=== PATIENT | female | born 1975 | race American Indian/Alaskan Native ===

== ENCOUNTER 2017-11-26 12:58 | Inpatient (IN) | payer SELFPAY ==
[2017-11-26] MEDS ORDERED: NITRO-BID 2% TP ONE (15:45)
[2017-11-26] MEDS ORDERED: ASPIRIN PO ONE (15:45)
--- NOTE | 2017-11-26 15:45 | Emergency Department Report ---
Blank Doc - Documentation Documentation: Patient is a 42-year-old female who is presenting with chest pain. Patient states she woke up with stabbing chest pain is similar chest hypoxia 5:30 this morning there is some associated shortness of breath. Patient states pain as being constant with no radiation. Patient's history high blood pressure was not taking blood pressure medicines at least since January 2017 secondary to not having a physician. Patient denies any nausea vomiting cough fevers congestion at this time.
[2017-11-26] MEDS ORDERED: CATAPRES PO ONE (15:46)
--- NOTE | 2017-11-26 16:02 | Emergency Department Report ---
ED Chest Pain HPI - General Chief Complaint: Chest Pain Stated Complaint: CHEST PAIN Time Seen by Provider: 11/26/17 15:37 Source: patient, family Mode of arrival: Ambulatory Limitations: No Limitations - History of Present Illness Initial Comments: Patient here reports that she has chest pain Patient here reports that she is having chest pain started at 5:30 AM to the left side of her chest with nausea and vomiting. She reports radiation of pain to her left arm. Pain feels like someone is pressing on her chest. Denies any recent travel, denies any control pill. Patient says she is also having some shortness of breath. Her blood pressure is 162/114, and she denied headache, dizziness or blurred vision. She denies any swelling to her extremities. Patient does have a history of high blood pressure and an enlarged heart from chronic hypertension. Surgical history of 2. She denies a previous history of chest pain and reports that her pain is 10 out of 10 to her left chest radiating down into her left arm. Nothing makes it better, nothing makes it worse. She did not take any medication prior to coming to the emergency room and patient reports that she recently moved to [place] and she was on blood pressure medication to include lisinopril, which she has not taken for a while. She does not have a primary care physician. Denies any history of blood clots personally or in her family MD Complaint: chest pain -: This morning Onset: during rest Pain Location: left chest Pain Radiation: LUE Severity: severe Severity scale (0 -10): 10 Quality: tightness, pressure Consistency: constant Improves With: nothing Worsens With: nothing Context: other (unknown) re: nausea. denies: vomting, diaphoresis, dyspnea, sense of impending doom Other Symptoms: denies: cough, fever, syncope, leg swelling, palpitations, burping, other Treatments Prior to Arrival: none Aspirin use within the Past 7 Days: (0) No - Related Data On Oral Contraceptives: No Home Medications Medication Instructions Recorded Confirmed Last Taken No Known Home Medications [No 11/26/17 11/26/17 Unknown Reported Home Medications] Allergies Allergy/AdvReac Type Severity Reaction Status Date / Time No Known Allergies Allergy Verified 11/26/17 21:59 Heart Score - HEART Score History: Highly suspicious EKG: Normal Age: < 45 Risk factors: > 3 risk factors or hx of atherosclerotic disease (patient is a smoker) Troponin: < normal limit HEART Score: 4 - Critical Actions Critical Actions: 4-6 pts:12-16.6% risk of adverse cardiac event. Should be admitted ED Review of Systems ROS: Stated complaint: CHEST PAIN Other details as noted in HPI Comment: All other systems reviewed and negative Constitutional: no symptoms reported Eyes: denies: eye pain, eye discharge, vision change ENT: denies: ear pain, throat pain, congestion Respiratory: shortness of breath, SOB with exertion, SOB at rest. denies: cough , wheezing, other Cardiovascular: chest pain. denies: palpitations, dyspnea on exertion, edema, syncope, paroxysmal nocturnal dyspnea Gastrointestinal: nausea. denies: abdominal pain, vomiting, diarrhea, constipation, hematemesis, melena, hematochezia Genitourinary: denies: urgency, dysuria, discharge Musculoskeletal: denies: back pain, joint swelling, arthralgia, myalgia Skin: denies: rash, lesions Neurological: denies: headache, weakness, numbness, paresthesias, abnormal gait , vertigo Psychiatric: anxiety ED Past Medical Hx - Past Medical History Previous Medical History?: Yes Hx Hypertension: Yes (uncontrolled and noncompliant with medication) Additional medical history: enlarged heart - Surgical History Past Surgical History?: Yes Additional Surgical History: c sect x 2 - Family History Family history: diabetes, hypertension - Social History Smoking Status: Current Every Day Smoker Substance Use Type: Alcohol Other Social History: She lives with her family - Medications Home Medications: Home Medications Medication Instructions Recorded Confirmed Last Taken Type No Known Home Medications [No 11/26/17 11/26/17 Unknown History Reported Home Medications] ED Physical Exam - General Limitations: No Limitations General appearance: alert, in no apparent distress - Head Head exam: Present: atraumatic, normocephalic, normal inspection, other (normal exam) - Eye Eye exam: Present: normal appearance, PERRL, EOMI Pupils: Present: normal accommodation - ENT ENT exam: Present: normal exam, normal orophraynx, mucous membranes moist - Neck Neck exam: Present: normal inspection, full ROM, other (no C-spine tenderness). Absent: tenderness, lymphadenopathy - Respiratory Respiratory exam: Present: normal lung sounds bilaterally. Absent: respiratory distress, wheezes, rales, rhonchi, stridor, chest wall tenderness, accessory muscle use, decreased breath sounds, prolonged expiratory - Cardiovascular Cardiovascular Exam: Present: regular rate, normal rhythm, normal heart sounds. Absent: systolic murmur, diastolic murmur - GI/Abdominal GI/Abdominal exam: Present: soft, normal bowel sounds. Absent: distended, tenderness, guarding, rebound, rigid, mass, bruit, pulsatile mass, hernia - Extremities Exam Extremities exam: Present: normal inspection, full ROM, normal capillary refill , other (no clubbing, cyanosis or edema. +2 pulses to all extremities and no neurovascular compromise). Absent: tenderness, pedal edema, joint swelling, calf tenderness - Back Exam Back exam: Present: normal inspection, full ROM, other (ambulates without any difficulties). Absent: tenderness, CVA tenderness (R), CVA tenderness (L), muscle spasm, paraspinal tenderness, vertebral tenderness, rash noted - Neurological Exam Neurological exam: Present: alert, oriented X3, normal gait, reflexes normal, other ( No focal neurological deficit). Absent: motor sensory deficit - Psychiatric Psychiatric exam: Present: anxious - Skin Skin exam: Present: warm, dry, intact, normal color. Absent: rash ED Course Vital Signs 11/26/17 11/26/17 11/26/17 13:28 16:32 16:45 Temperature 99 F Pulse Rate 80 76 Respiratory 20 14 16 Rate Blood Pressure 162/114 168/106 Blood Pressure [Left] O2 Sat by Pulse 100 97 Oximetry 11/26/17 11/26/17 11/26/17 17:00 17:15 17:30 Temperature Pulse Rate 77 81 76 Respiratory 12 16 15 Rate Blood Pressure 174/111 168/103 173/110 Blood Pressure [Left] O2 Sat by Pulse 100 100 Oximetry 11/26/17 11/26/17 11/26/17 17:45 18:00 18:09 Temperature Pulse Rate 74 77 74 Respiratory 13 15 Rate Blood Pressure 192/114 192/114 192/119 Blood Pressure [Left] O2 Sat by Pulse 100 100 Oximetry 11/26/17 11/26/17 11/26/17 20:08 20:15 20:16 Temperature Pulse Rate 77 Respiratory 18 Rate Blood Pressure 192/114 130/75 Blood Pressure 130/75 [Left] O2 Sat by Pulse 100 100 100 Oximetry 05/10/18 05/10/18 05/10/18 20:30 20:46 21:00 Temperature Pulse Rate Respiratory Rate Blood Pressure 130/75 130/75 130/75 Blood Pressure [Left] O2 Sat by Pulse 99 99 99 Oximetry 11/26/17 11/26/17 11/26/17 21:30 21:38 21:46 Temperature Pulse Rate 82 Respiratory 14 13 Rate Blood Pressure Blood Pressure [Left] O2 Sat by Pulse 99 97 100 Oximetry 11/26/17 11/26/17 11/26/17 22:00 22:16 22:30 Temperature Pulse Rate 72 71 72 Respiratory 16 21 17 Rate Blood Pressure 123/82 123/82 110/73 Blood Pressure [Left] O2 Sat by Pulse 98 99 97 Oximetry 11/26/17 11/26/17 11/26/17 22:46 23:00 23:04 Temperature Pulse Rate 66 65 74 Respiratory 18 17 17 Rate Blood Pressure 110/73 111/77 111/77 Blood Pressure [Left] O2 Sat by Pulse 99 100 100 Oximetry 11/26/17 11/26/17 23:10 23:37 Temperature 98.3 F Pulse Rate 63 68 Respiratory 20 20 Rate Blood Pressure 111/77 111/73 Blood Pressure 111/73 [Left] O2 Sat by Pulse 99 98 Oximetry - Reevaluation(s) Reevaluation #1: 11/26/17 17:46 Patient with chest pain and she received Nitropaste after screening by Dr. Peter Rocha. She received lisinopril 20 mg by mouth for elevated blood pressure, clonidine 0.1 mg by mouth and aspirin 325 mg by mouth. She is stable at present. Patient with elevated d-dimer and to have CTA of the chest Reevaluation #2: 11/26/17 19:48 Patient had CTA of the chest done and awaiting report. Chest x-ray with negative findings. CBC stable, troponin is stable and her EKG is stable patient with elevated blood pressure. She was given Ativan 1 mg by mouth for anxiety prior to CTA. Reevaluation #3: 11/26/17 20:16 Blood pressure is better. Patient is stable. Patient says that Ativan helped her anxiety. CT is still pending. I spoke with patient regarding decision to admit whether or not she has positive CTA of the chest. Her cardiac risk or is elevated and it suggested that she be admitted for observation and probable will have stress test in the morning. Patient is old. Bit emotional, but I was able to convince her that she is to stay. I spoke with the charge nurse, who will try to get a bed on the main side for patient. She did say that Nitropaste did resolve her chest pain. KEEGAN score - Keegan Score Age > 65: (0) No Aspirin use within the Past 7 Days: (0) No 3 or more CAD Risk Factors: (1) Yes (patient with BMI of 47, positive smoker, uncontrolled hypertension and enlarged heart from chronic hypertension.) 2 or more Angina events in past 24 hrs: (0) No Known CAD with more than 50% Stenosis: (0) No Elevated Cardiac Markers: (0) No ST Deviation Greater than 0.5mm: (0) No KEEGAN Score: 1 ED Medical Decision Making - Lab Data Result diagrams: 11/27/17 05:51 11/26/17 16:15 Lab Results 11/26/17 11/26/17 11/26/17 Range/Units 16:15 16:15 16:15 WBC 4.9 (4.5-11.0) K/mm3 RBC 4.35 (3.65-5.03) M/mm3 Hgb 13.3 (10.1-14.3) gm/dl Hct 39.7 (30.3-42.9) % MCV 91 (79-97) fl MCH 31 (28-32) pg MCHC 33 (30-34) % RDW 13.8 (13.2-15.2) % Plt Count 297 (140-440) K/mm3 Add Manual Diff Complete Total Counted 100 Seg Neuts % (Manual) 59.0 (40.0-70.0) % Band Neutrophils % 0 % Lymphocytes % (Manual) 35.0 (13.4-35.0) % Reactive Lymphs % (Man) 0 % Monocytes % (Manual) 3.0 (0.0-7.3) % Eosinophils % (Manual) 1.0 (0.0-4.3) % Basophils % (Manual) 2.0 H (0.0-1.8) % Metamyelocytes % 0 % Myelocytes % 0 % Promyelocytes % 0 % Blast Cells % 0 % Nucleated RBC % Not Reportable Seg Neutrophils # Man 2.9 (1.8-7.7) K/mm3 Band Neutrophils # 0.0 K/mm3 Lymphocytes # (Manual) 1.7 (1.2-5.4) K/mm3 Abs React Lymphs (Man) 0.0 K/mm3 Monocytes # (Manual) 0.1 (0.0-0.8) K/mm3 Eosinophils # (Manual) 0.0 (0.0-0.4) K/mm3 Basophils # (Manual) 0.1 (0.0-0.1) K/mm3 Metamyelocytes # 0.0 K/mm3 Myelocytes # 0.0 K/mm3 Promyelocytes # 0.0 K/mm3 Blast Cells # 0.0 K/mm3 WBC Morphology Not Reportable Hypersegmented Neuts Not Reportable Hyposegmented Neuts Not Reportable Hypogranular Neuts Not Reportable Smudge Cells Not Reportable Toxic Granulation Not Reportable Toxic Vacuolation Not Reportable Dohle Bodies Not Reportable Pelger-Huet Anomaly Not Reportable Charan Rods Not Reportable Platelet Estimate Cons Clumped Platelets Not Reportable Plt Clumps, EDTA Not Reportable Large Platelets Not Reportable Giant Platelets Not Reportable Platelet Satelliting Not Reportable Plt Morphology Comment Not Reportable RBC Morphology Normal Dimorphic RBCs Not Reportable Polychromasia Not Reportable Hypochromasia Not Reportable Poikilocytosis Not Reportable Anisocytosis Not Reportable Microcytosis Not Reportable Macrocytosis Not Reportable Spherocytes Not Reportable Pappenheimer Bodies Not Reportable Sickle Cells Not Reportable Target Cells Not Reportable Tear Drop Cells Not Reportable Ovalocytes Not Reportable Helmet Cells Not Reportable [place] Bodies Not Reportable [place] Rings Not Reportable [place] Cells Not Reportable Bite Cells Not Reportable Crenated Cell Not Reportable Elliptocytes Not Reportable Acanthocytes (Spur) Not Reportable Rouleaux Not Reportable Hemoglobin C Crystals Not Reportable Schistocytes Not Reportable Malaria parasites Not Reportable Kem Bodies Not Reportable Hem Pathologist Commnt No PT 12.4 (12.2-14.9) Sec. INR 0.88 (0.87-1.13) APTT 23.6 L (24.2-36.6) Sec. D-Dimer 261.62 H (0-234) ng/mlDDU Sodium 135 L (137-145) mmol/L Potassium 4.0 (3.6-5.0) mmol/L Chloride 95.7 L (98-107) mmol/L Carbon Dioxide 24 (22-30) mmol/L Anion Gap 19 mmol/L BUN 12 (7-17) mg/dL Creatinine 0.6 L (0.7-1.2) mg/dL Estimated GFR > 60 ml/min BUN/Creatinine Ratio 20 % Glucose 91 (65-100) mg/dL Calcium 9.1 (8.4-10.2) mg/dL Troponin T < 0.010 (0.00-0.029) ng/mL 11/26/17 Range/Units 19:21 WBC (4.5-11.0) K/mm3 RBC (3.65-5.03) M/mm3 Hgb (10.1-14.3) gm/dl Hct (30.3-42.9) % MCV (79-97) fl MCH (28-32) pg MCHC (30-34) % RDW (13.2-15.2) % Plt Count (140-440) K/mm3 Add Manual Diff Total Counted Seg Neuts % (Manual) (40.0-70.0) % Band Neutrophils % % Lymphocytes % (Manual) (13.4-35.0) % Reactive Lymphs % (Man) % Monocytes % (Manual) (0.0-7.3) % Eosinophils % (Manual) (0.0-4.3) % Basophils % (Manual) (0.0-1.8) % Metamyelocytes % % Myelocytes % % Promyelocytes % % Blast Cells % % Nucleated RBC % Seg Neutrophils # Man (1.8-7.7) K/mm3 Band Neutrophils # K/mm3 Lymphocytes # (Manual) (1.2-5.4) K/mm3 Abs React Lymphs (Man) K/mm3 Monocytes # (Manual) (0.0-0.8) K/mm3 Eosinophils # (Manual) (0.0-0.4) K/mm3 Basophils # (Manual) (0.0-0.1) K/mm3 Metamyelocytes # K/mm3 Myelocytes # K/mm3 Promyelocytes # K/mm3 Blast Cells # K/mm3 WBC Morphology Hypersegmented Neuts Hyposegmented Neuts Hypogranular Neuts Smudge Cells Toxic Granulation Toxic Vacuolation Dohle Bodies Pelger-Huet Anomaly Charan Rods Platelet Estimate Clumped Platelets Plt Clumps, EDTA Large Platelets Giant Platelets Platelet Satelliting Plt Morphology Comment RBC Morphology Dimorphic RBCs Polychromasia Hypochromasia Poikilocytosis Anisocytosis Microcytosis Macrocytosis Spherocytes Pappenheimer Bodies Sickle Cells Target Cells Tear Drop Cells Ovalocytes Helmet Cells [place] Bodies [place] Rings Coty Cells Bite Cells Crenated Cell Elliptocytes Acanthocytes (Spur) Rouleaux Hemoglobin C Crystals Schistocytes Malaria parasites Kem Bodies Hem Pathologist Commnt PT (12.2-14.9) Sec. INR (0.87-1.13) APTT (24.2-36.6) Sec. D-Dimer (0-234) ng/mlDDU Sodium (137-145) mmol/L Potassium (3.6-5.0) mmol/L Chloride (98-107) mmol/L Carbon Dioxide (22-30) mmol/L Anion Gap mmol/L BUN (7-17) mg/dL Creatinine (0.7-1.2) mg/dL Estimated GFR ml/min BUN/Creatinine Ratio % Glucose (65-100) mg/dL Calcium (8.4-10.2) mg/dL Troponin T < 0.010 (0.00-0.029) ng/mL - EKG Data -: EKG Interpreted by Me (Dr. Rocha) EKG shows normal: sinus rhythm (35 bpm) - EKG Data Interpretation: no acute changes, LVH - Radiology Data Radiology results: report reviewed Chest x-ray reveals no acute cardiopulmonary findings. CTA chest reveals no acute abnormalities. - Medical Decision Making ED Course: patient here with Cp with radiation to left arm, SOB ,nausea, Hypertensive urgency and anxiety. She was given Nitro paste and asa which relieve cp and SOB. Ativan po which relieved her anxiety. Cardiac risk score is greater than 4. CtA chest with no acute findings, CXr stable. Labs stable except for D Dimer which is elevated. Cardiac troponin and ekg stable. It was decided that patient would be admitted due to cardiac risk score place her at risk for ACS. Patient is a smoker, Morbid obesity status, uncontrolled HTN, non compliance LVH. I counselled d her on life style modification and she voiced understanding. Patient aware on decision to admit and she agrees. Patient is stable on 02 n/c. LAMBERT Graham to call hospitalist to admit patient. I spoke with Dr. Carcamo who agrees to accept patient. Care of patient managed with Dr Peter Rocha. Patient: SHIRAZ BENNETT MR#: [id number] : 1975 Acct:[id number] Age/Sex: 42 / F ADM Date: 11/26/17 Loc: ED Attending Dr: Ordering Physician: OUMAR DILL Date of Service: 11/26/17 Procedure(s): CT angio chest Accession Number(s): [id number] cc: OUMAR DILL FINAL REPORT EXAM: CT ANGIO CHEST HISTORY: chest pain/sob/elevated d dimer TECHNIQUE: Spiral CTA of the chest after the uneventful administration of IV contrast. Multiplanar reformations. PRIORS: None. FINDINGS: Chest: The main and bilateral proximal pulmonary arteries are normally opacified without endoluminal filling defects. 11/27/2017 [email or web address] [email or web address] No apparent aneurysm, pseudoaneurysm or aortic dissection. No significant lymph node enlargement or axillary adenopathy. Lungs show no discrete parenchymal mass, focal consolidation or pleural effusions. No apparent pneumothorax. Visualized upper abdomen grossly unremarkable. IMPRESSION: 1. No evidence of large vessel or central pulmonary emboli. No acute consolidation. Transcribed By: [facility] Dictated By: LAMAR COLEMAN MD Electronically Authenticated By: LAMAR COLEMAN MD Signed Date/Time: 11/26/172109 DD/ 09 TD/TT: 11/26/172109 Findings [facility] [address] [place] [address] XRay Report Signed Patient: SHIRAZ BENNETT MR#: [id number] : 1975 Acct:[id number] Age/Sex: 42 / F ADM Date: 11/26/17 Loc: ED Attending Dr: Ordering Physician: ALEJANDRO ROCHA MD Date of Service: 11/26/17 Procedure(s): XR chest routine 2V Accession Number(s): [id number] cc: ALEJANDRO ROCHA MD Fluoro Time In Minutes: FINAL REPORT EXAM: XR CHEST ROUTINE 2V HISTORY: Chest Pain TECHNIQUE: Frontal and lateral chest x-ray. PRIORS: None. FINDINGS: Cardiac and mediastinal silhouette within normal limits. Lungs are normally expanded, without significant vascular congestion. No focal consolidation, pleural effusion or apparent pneumothorax. Bony thorax grossly unremarkable. IMPRESSION: 1. No acute findings. Transcribed By: [facility] Dictated By: LAMAR COLEMAN MD Electronically Authenticated By: LAMAR COLEMAN MD Signed Date/Time: 11/26/171706 DD/ 06 TD/TT: 11/26/171706 - Differential Diagnosis ACS, PE, costochondritis, atypical chest pain, pneumonia. Critical care attestation.: If time is entered above; I have spent that time in minutes in the direct care of this critically ill patient, excluding procedure time. ED Disposition Clinical Impression: Hypertensive urgency, Chest pain radiating to arm, Shortness of breath at rest , Nausea alone, Morbid obesity with BMI of 45.0-49.9, adult, LVH (left ventricular hypertrophy), Non compliance w medication regimen Disposition: OP ADMIT IP TO THIS HOSP Is pt being admited?: Yes Does the pt Need Aspirin: Yes Condition: Stable
[2017-11-26 16:31] LABS: Hematocrit 39.7 % (30.3-42.9); Hemoglobin 13.3 gm/dl (10.1-14.3); Mean Corpuscular HGB Conc 33 % (30-34); Mean Corpuscular Hemoglobin 31 pg (28-32); Mean Corpuscular Volume 91 fl (79-97); Platelet Count 297 K/mm3 (140-440); Red Blood Count 4.35 M/mm3 (3.65-5.03); Red Cell Distribution Width 13.8 % (13.2-15.2)
[2017-11-26 16:38] LABS: INR 0.88 (0.87-1.13)
[2017-11-26 16:39] LABS: Partial Thromboplastin Time 23.6 Sec. (24.2-36.6)
[2017-11-26] MEDS ORDERED: ZESTRIL PO ONE (16:44)
[2017-11-26 16:51] LABS: BUN/Creatinine Ratio 20; Blood Urea Nitrogen 12 mg/dL (7-17); Calcium 9.1 mg/dL (8.4-10.2); Hemolysis Index 5
--- NOTE | 2017-11-26 17:13 | XRay Report ---
FINAL REPORT EXAM: XR CHEST ROUTINE 2V HISTORY: Chest Pain TECHNIQUE: Frontal and lateral chest x-ray. PRIORS: None. FINDINGS: Cardiac and mediastinal silhouette within normal limits. Lungs are normally expanded, without significant vascular congestion. No focal consolidation, pleural effusion or apparent pneumothorax. Bony thorax grossly unremarkable. IMPRESSION: 1. No acute findings.
[2017-11-26] MEDS ORDERED: ATIVAN PO ONE (17:39)
[2017-11-26 17:55] LABS: Platelet Estimate Cons; RBC Morphology Normal; Total Cells Counted 100
--- NOTE | 2017-11-26 21:16 | Cat Scan Report ---
FINAL REPORT EXAM: CT ANGIO CHEST HISTORY: chest pain/sob/elevated d dimer TECHNIQUE: Spiral CTA of the chest after the uneventful administration of IV contrast. Multiplanar reformations. PRIORS: None. FINDINGS: Chest: The main and bilateral proximal pulmonary arteries are normally opacified without endoluminal filling defects. No apparent aneurysm, pseudoaneurysm or aortic dissection. No significant lymph node enlargement or axillary adenopathy. Lungs show no discrete parenchymal mass, focal consolidation or pleural effusions. No apparent pneumothorax. Visualized upper abdomen grossly unremarkable. IMPRESSION: 1. No evidence of large vessel or central pulmonary emboli. No acute consolidation.
--- NOTE | 2017-11-26 21:37 | Emergency Department Report ---
Blank Doc - Documentation Documentation: Patient discussed with Lorna Hebert (hospitalist) and accepts patient to her services. At time of admission, the patient does not seem toxic or ill in appearance. No acute signs of distress noted. Patient agrees to admission treatment plan of care. No further questions noted by the patient.
[2017-11-26] MEDS ORDERED: ZOFRAN IV PRN (21:51)
[2017-11-26] MEDS ORDERED: MORPHINE IV PRN (21:51)
[2017-11-26] MEDS ORDERED: SODIUM CHLORIDE FLUSH SYRINGE 10 ML IV PRN (21:51)
[2017-11-26] MEDS ORDERED: APRESOLINE IV PRN (21:52)
[2017-11-26] MEDS ORDERED: SODIUM CHLORIDE FLUSH SYRINGE 10 ML IV SCH (22:00)
--- NOTE | 2017-11-26 22:12 | History and Physical Report ---
History of Present Illness Date of examination: 11/26/17 History of present illness: 42-year-old woman a history of hypertension comes emergency room with complaints of chest pain that started this morning. Pain is in the left chest which he described as a stabbing pain, intermittent in nature lasting less than 2 minutes, intensity, 10, radiating to the left arm, cannot identify exacerbating or relieving factors. Admits to nausea and vomiting, no shortness of breath, diaphoresis or palpitation Review of systems Constitutional: no weight loss, chills Ears, eyes, nose, mouth and throat: no nasal congestion, no nasal discharge, no sinus pressure, no vision change, no red eye. Neck: No neck pain or rigidity. Cardiovascular: no palpitations Respiratory: No cough, shortness of breath Gastrointestinal: no abdominal pain, hematochezia Genitourinary : no dysuria, frequency , no hematuria Musculoskeletal: no joint swelling or muscle ache Integumentary: no rash, no pruritis Neurological: no parathesias, no numbness, no focal weakness Endocrine: no cold or heat intolerance, no polyuria or polydipsia Hematologic/Lymphatic: no easy bruising, no easy bleeding, no gland swelling Allergic/Immunologic: no urticaria, no angioedema. PAST MEDICAL HISTORY:hypertension PAST SURGICAL HISTORY: SOCIAL HISTORY: Smokes half pack a day, social alcohol, marijuana use FAMILY HISTORY: Hypertension Medications and Allergies Allergies Allergy/AdvReac Type Severity Reaction Status Date / Time No Known Allergies Allergy Verified 11/26/17 21:59 Home Medications Medication Instructions Recorded Confirmed Last Taken Type No Known Home Medications [No 11/26/17 11/26/17 Unknown History Reported Home Medications] Active Meds: Active Medications Acetaminophen (Tylenol) 650 mg PO Q4H PRN PRN Reason: Pain MILD(1-3)/Fever >100.5/COLLINS Aspirin (Aspirin) 325 mg PO QDAY BALDEMAR Enoxaparin Sodium (Lovenox) 30 mg SUB-Q QDAY BALDEMAR Hydralazine HCl (Apresoline) 5 mg IV Q6HR PRN PRN Reason: Hypertension Morphine Sulfate (Morphine) 2 mg IV Q4H PRN PRN Reason: Pain, Moderate (4-6) Ondansetron HCl (Zofran) 4 mg IV Q8H PRN PRN Reason: Nausea And Vomiting Sodium Chloride (Sodium Chloride Flush Syringe 10 Ml) 10 ml IV BID BALDEMAR Exam - Physical Exam Narrative exam: Gen. appearance: Patient lying in bed, no apparent distress HEENT: Normocephalic, atraumatic, pupils equally round and reactive to light, extraocular movement intact, and no sclericterus,. No JVD or thyromegaly or nodule,neck supple, no carotid bruit ,mucous membranes moist, no exudate or erythema Heart: S1, S2, regular rate and rhythm Lungs: Clear to auscultation bilaterally, breathing comfortable Abdomen: Positive bowel sounds, nontender, nondistended, no organomegaly Extremity: No edema, cyanosis, clubbing Skin: No rash, nodules, warm, dry Neuro: Oriented 3, cranial nerves II-12 intact, speech is fluent, motor and sensory intact - Constitutional Vitals: Temp Pulse Resp BP Pulse Ox 99 F 77 14 130/75 97 11/26/17 13:28 11/26/17 20:15 11/26/17 21:38 11/26/17 20:15 11/26/17 21:38 Results - Labs CBC & Chem 7: 11/26/17 16:15 11/26/17 16:15 Labs: Abnormal lab results 11/26/17 11/26/17 11/26/17 Range/Units 16:15 16:15 16:15 Basophils % (Manual) 2.0 H (0.0-1.8) % APTT 23.6 L (24.2-36.6) Sec. D-Dimer 261.62 H (0-234) ng/mlDDU Sodium 135 L (137-145) mmol/L Chloride 95.7 L (98-107) mmol/L Creatinine 0.6 L (0.7-1.2) mg/dL - Imaging and Cardiology EKG: image reviewed Chest x-ray: image reviewed CT scan - chest: report reviewed Assessment and Plan Assessment Hypertensive urgency Chest pain most like secondary to #1 Plan Admit to medicine Check cardiac enzyme stress test IV hydralazine for blood pressure control Start aspirin, IV morphine, DVT prophylaxis
[2017-11-26] MEDS ORDERED: TYLENOL ONE (23:11)
[2017-11-26] MEDS: TYLENOL PO PRN (23:15)
[2017-11-27 00:18] LABS: Amphetamine Screen,Urine PRESUMPTIVE NEGATIVE; Benzodiazepines Screen,Urine PRESUMPTIVE NEGATIVE; Methadone Screen,Urine PRESUMPTIVE NEGATIVE; Opiate Screen,Urine PRESUMPTIVE NEGATIVE
[2017-11-27 00:35] LABS: Cannabinoid Screen,Urine PRESUMPTIVE POSITIVE; Cocaine Screen,Urine PRESUMPTIVE POSITIVE
[2017-11-27] MEDS: TYLENOL PO PRN (05:47)
[2017-11-27 06:44] LABS: Basophils % (Auto) 0.7 % (0.0-1.8); Eosinophils # (Auto) 0.1 K/mm3 (0.0-0.4); Eosinophils % (Auto) 3.2 % (0.0-4.3); Hematocrit 34.8 % (30.3-42.9); Hemoglobin 11.2 gm/dl (10.1-14.3); Lymphocytes # (Auto) 1.6 K/mm3 (1.2-5.4); Lymphocytes % (Auto) 34.9 % (13.4-35.0); Mean Corpuscular HGB Conc 32 % (30-34); Mean Corpuscular Hemoglobin 30 pg (28-32); Mean Corpuscular Volume 92 fl (79-97); Monocytes # (Auto) 0.4 K/mm3 (0.0-0.8); Monocytes % (Auto) 8.5 % (0.0-7.3); Platelet Count 262 K/mm3 (140-440); Red Blood Count 3.78 M/mm3 (3.65-5.03); Red Cell Distribution Width 14.1 % (13.2-15.2)
[2017-11-27 07:12] LABS: BUN/Creatinine Ratio 19; Blood Urea Nitrogen 15 mg/dL (7-17); Calcium 8.7 mg/dL (8.4-10.2); Hemolysis Index 6
[2017-11-27] MEDS ORDERED: LOVENOX SUB-Q SCH ×2 (10:00)
[2017-11-27] MEDS ORDERED: ASPIRIN PO SCH (10:00)
--- NOTE | 2017-11-27 12:26 | Progress Note ---
Assessment and Plan Assessment and plan: Hypertensive urgency Chest pain most like secondary to #1 Plan Admit to medicine Check cardiac enzyme stress test IV hydralazine for blood pressure control Start aspirin, IV morphine, DVT prophylaxis Hospitalist Physical - Constitutional Vitals: Temp Pulse Resp BP Pulse Ox 98.2 F 70 18 129/78 100 11/27/17 06:27 11/27/17 06:27 11/27/17 06:47 11/27/17 06:27 11/27/17 06:27 Results - Labs CBC & Chem 7: 11/27/17 05:51 11/27/17 05:51 Labs: Laboratory Last Values WBC 4.6 K/mm3 (4.5-11.0) 11/27/17 05:51 RBC 3.78 M/mm3 (3.65-5.03) 11/27/17 05:51 Hgb 11.2 gm/dl (10.1-14.3) 11/27/17 05:51 Hct 34.8 % (30.3-42.9) 11/27/17 05:51 MCV 92 fl (79-97) 11/27/17 05:51 MCH 30 pg (28-32) 11/27/17 05:51 MCHC 32 % (30-34) 11/27/17 05:51 RDW 14.1 % (13.2-15.2) 11/27/17 05:51 Plt Count 262 K/mm3 (140-440) 11/27/17 05:51 Lymph % (Auto) 34.9 % (13.4-35.0) 11/27/17 05:51 Marion % (Auto) 8.5 % (0.0-7.3) H 11/27/17 05:51 Eos % (Auto) 3.2 % (0.0-4.3) 11/27/17 05:51 Baso % (Auto) 0.7 % (0.0-1.8) 11/27/17 05:51 Lymph # 1.6 K/mm3 (1.2-5.4) 11/27/17 05:51 Marion # 0.4 K/mm3 (0.0-0.8) 11/27/17 05:51 Eos # 0.1 K/mm3 (0.0-0.4) 11/27/17 05:51 Baso # 0.0 K/mm3 (0.0-0.1) 11/27/17 05:51 Add Manual Diff Complete 11/26/17 16:15 Total Counted 100 11/26/17 16:15 Seg Neutrophils % 52.7 % (40.0-70.0) 11/27/17 05:51 Seg Neuts % (Manual) 59.0 % (40.0-70.0) 11/26/17 16:15 Band Neutrophils % 0 % 11/26/17 16:15 Lymphocytes % (Manual) 35.0 % (13.4-35.0) 11/26/17 16:15 Reactive Lymphs % (Man) 0 % 11/26/17 16:15 Monocytes % (Manual) 3.0 % (0.0-7.3) 11/26/17 16:15 Eosinophils % (Manual) 1.0 % (0.0-4.3) 11/26/17 16:15 Basophils % (Manual) 2.0 % (0.0-1.8) H 11/26/17 16:15 Metamyelocytes % 0 % 11/26/17 16:15 Myelocytes % 0 % 11/26/17 16:15 Promyelocytes % 0 % 11/26/17 16:15 Blast Cells % 0 % 11/26/17 16:15 Nucleated RBC % Not Reportable 11/26/17 16:15 Seg Neutrophils # 2.4 K/mm3 (1.8-7.7) 11/27/17 05:51 Seg Neutrophils # Man 2.9 K/mm3 (1.8-7.7) 11/26/17 16:15 Band Neutrophils # 0.0 K/mm3 11/26/17 16:15 Lymphocytes # (Manual) 1.7 K/mm3 (1.2-5.4) 11/26/17 16:15 Abs React Lymphs (Man) 0.0 K/mm3 11/26/17 16:15 Monocytes # (Manual) 0.1 K/mm3 (0.0-0.8) 11/26/17 16:15 Eosinophils # (Manual) 0.0 K/mm3 (0.0-0.4) 11/26/17 16:15 Basophils # (Manual) 0.1 K/mm3 (0.0-0.1) 11/26/17 16:15 Metamyelocytes # 0.0 K/mm3 11/26/17 16:15 Myelocytes # 0.0 K/mm3 11/26/17 16:15 Promyelocytes # 0.0 K/mm3 11/26/17 16:15 Blast Cells # 0.0 K/mm3 11/26/17 16:15 WBC Morphology Not Reportable 11/26/17 16:15 Hypersegmented Neuts Not Reportable 11/26/17 16:15 Hyposegmented Neuts Not Reportable 11/26/17 16:15 Hypogranular Neuts Not Reportable 11/26/17 16:15 Smudge Cells Not Reportable 11/26/17 16:15 Toxic Granulation Not Reportable 11/26/17 16:15 Toxic Vacuolation Not Reportable 11/26/17 16:15 Dohle Bodies Not Reportable 11/26/17 16:15 Pelger-Huet Anomaly Not Reportable 11/26/17 16:15 Charan Rods Not Reportable 11/26/17 16:15 Platelet Estimate Cons 11/26/17 16:15 Clumped Platelets Not Reportable 11/26/17 16:15 Plt Clumps, EDTA Not Reportable 11/26/17 16:15 Large Platelets Not Reportable 11/26/17 16:15 Giant Platelets Not Reportable 11/26/17 16:15 Platelet Satelliting Not Reportable 11/26/17 16:15 Plt Morphology Comment Not Reportable 11/26/17 16:15 RBC Morphology Normal 11/26/17 16:15 Dimorphic RBCs Not Reportable 11/26/17 16:15 Polychromasia Not Reportable 11/26/17 16:15 Hypochromasia Not Reportable 11/26/17 16:15 Poikilocytosis Not Reportable 11/26/17 16:15 Anisocytosis Not Reportable 11/26/17 16:15 Microcytosis Not Reportable 11/26/17 16:15 Macrocytosis Not Reportable 11/26/17 16:15 Spherocytes Not Reportable 11/26/17 16:15 Pappenheimer Bodies Not Reportable 11/26/17 16:15 Sickle Cells Not Reportable 11/26/17 16:15 Target Cells Not Reportable 11/26/17 16:15 Tear Drop Cells Not Reportable 11/26/17 16:15 Ovalocytes Not Reportable 11/26/17 16:15 Helmet Cells Not Reportable 11/26/17 16:15 Honeycutt-Chamizal Bodies Not Reportable 11/26/17 16:15 [place] Rings Not Reportable 11/26/17 16:15 Boyce Cells Not Reportable 11/26/17 16:15 Bite Cells Not Reportable 11/26/17 16:15 Crenated Cell Not Reportable 11/26/17 16:15 Elliptocytes Not Reportable 11/26/17 16:15 Acanthocytes (Spur) Not Reportable 11/26/17 16:15 Rouleaux Not Reportable 11/26/17 16:15 Hemoglobin C Crystals Not Reportable 11/26/17 16:15 Schistocytes Not Reportable 11/26/17 16:15 Malaria parasites Not Reportable 11/26/17 16:15 Kem Bodies Not Reportable 11/26/17 16:15 Hem Pathologist Commnt No 11/26/17 16:15 PT 12.4 Sec. (12.2-14.9) 11/26/17 16:15 INR 0.88 (0.87-1.13) 11/26/17 16:15 APTT 23.6 Sec. (24.2-36.6) L 11/26/17 16:15 D-Dimer 261.62 ng/mlDDU (0-234) H 11/26/17 16:15 Sodium 140 mmol/L (137-145) 11/27/17 05:51 Potassium 3.9 mmol/L (3.6-5.0) 11/27/17 05:51 Chloride 101.7 mmol/L (98-107) 11/27/17 05:51 Carbon Dioxide 25 mmol/L (22-30) 11/27/17 05:51 Anion Gap 17 mmol/L 11/27/17 05:51 BUN 15 mg/dL (7-17) 11/27/17 05:51 Creatinine 0.8 mg/dL (0.7-1.2) 11/27/17 05:51 Estimated GFR > 60 ml/min 11/27/17 05:51 BUN/Creatinine Ratio 19 % 11/27/17 05:51 Glucose 96 mg/dL (65-100) 11/27/17 05:51 Calcium 8.7 mg/dL (8.4-10.2) 11/27/17 05:51 Troponin T < 0.010 ng/mL (0.00-0.029) 11/26/17 19:21 Urine Opiates Screen Presumptive negative 11/27/17 00:02 Urine Methadone Screen Presumptive negative 11/27/17 00:02 Ur Barbiturates Screen Presumptive negative 11/27/17 00:02 Ur Phencyclidine Scrn Presumptive negative 11/27/17 00:02 Ur Amphetamines Screen Presumptive negative 11/27/17 00:02 U Benzodiazepines Scrn Presumptive negative 11/27/17 00:02 Urine Cocaine Screen Presumptive positive 11/27/17 00:02 U Marijuana (THC) Screen Presumptive positive 11/27/17 00:02 Drugs of Abuse Note Disclamer 11/27/17 00:02
[2017-11-27] MEDS ORDERED: LEXISCAN IV ONE ×2 (12:39→13:38)
--- NOTE | 2017-11-27 15:13 | Discharge Summary ---
Providers - Providers Date of Admission: 11/26/17 21:51 Attending physician: ALLYSON PATRICK MD Primary care physician: SAFETY AND OCCUPATIONAL HEALTH MANAGER Hospitalization Condition: Stable Hospital course: 42F who pw chest pain; ACS was ruled out by negative troponins. Urine drug screen was positive for cocaine and marijuana. She has had a stress test that was negative. Chest was was likely due to cocaine abuse. Patient was counseled about cocaine and marijuana cessation. Diagnoses Chest pain due to cocaine abuse htn urgency due to cocaine abuse Disposition: DC-01 TO HOME OR SELFCARE Time spent for discharge: 33 minutes Core Measure Documentation - Palliative Care Palliative Care/ Comfort Measures: Not Applicable - Core Measures Any of the following diagnoses?: none Exam - Constitutional Vitals: Temp Pulse Resp BP Pulse Ox 98.2 F 81 18 142/93 100 11/27/17 06:27 11/27/17 13:13 11/27/17 06:47 11/27/17 13:13 11/27/17 06:27 General appearance: Present: no acute distress, well-nourished - EENT Eyes: Present: PERRL ENT: hearing intact, clear oral mucosa - Neck Neck: Present: supple, normal ROM - Respiratory Respiratory effort: normal Respiratory: bilateral: CTA - Cardiovascular Heart Sounds: Present: S1 & S2. Absent: rub, click - Extremities Extremities: pulses symmetrical, No edema Peripheral Pulses: within normal limits - Abdominal General gastrointestinal: Present: soft, non-tender, non-distended, normal bowel sounds Female genitourinary: Present: normal - Integumentary Integumentary: Present: clear, warm, dry - Musculoskeletal Musculoskeletal: gait normal, strength equal bilaterally - Psychiatric Psychiatric: appropriate mood/affect, intact judgment & insight - Neurologic Neurologic: CNII-XII intact, moves all extremities Plan Follow up with: PRIMARY CARE, [Primary Care Provider] - 3-5 Days Prescriptions: Aspirin [Aspirin TAB] 325 mg PO QDAY #30 tablet
[2017-11-27 15:40] VITALS: BP 134/93
--- NOTE | 2017-11-28 06:54 | Treadmill Report ---
This is a single isotope dual study myocardial perfusion scan report. AGE: 42. SEX: Female. REFERRING PHYSICIAN: Dr. Renteria. Seen and dictated by Dr. Dayami Love. DESCRIPTION OF PROCEDURE: The patient received 10 mCi of technetium 99m Myoview intravenously under resting conditions. Resting myocardial perfusion scan was done. Subsequently, the patient underwent Lexiscan stress test as per the protocol. During Lexiscan stress, the patient received 28 mCi of technetium 99m Myoview intravenously. After 30 to 60 minutes, post stress images were done. Computerized reconstruction images were performed for analysis. The post-stress images revealed mildly dilated left ventricle. No perfusion abnormality was seen. Gated study did not reveal any wall motion abnormality. The left ventricular ejection fraction was low normal and was calculated to be 50%. The resting images were also normal. CONCLUSION: 1. No perfusion abnormality of the left ventricular myocardium was demonstrated in the resting as well as stress images after the patient underwent Jerri stress nuclear scan. 2. Mildly dilated left ventricle. 3. Low normal left ventricular ejection fraction of 50%. JOB# [id number] [facility]
== END 2017-11-27 17:49 | disposition home or self-care (01) | DRG 918 ==
LOC: EDBD → ED 12:58 → 4A 21:51
PROVIDERS: ADMIT Internal Medicine; ATTEND Internal Medicine
DX: T40.5X1A Poisoning by cocaine, accidental (unintentional), initial encounter (principal); F14.10 Cocaine abuse, uncomplicated; I16.0 Hypertensive urgency; I10 Essential (primary) hypertension; F17.210 Nicotine dependence, cigarettes, uncomplicated; Z82.49 Family history of ischemic heart disease and other diseases of the circulatory system; Y92.89 Other specified places as the place of occurrence of the external cause
CPT/HCPCS: 36415; 71046; 71275; 78452; 80048; 80307; 84484; 85007; 85025; 85379; 85610; 85730; 93005; 93010; 93017; 94760; 99285; 99406; A9502; J1650; J2785; Q9967

== ENCOUNTER 2018-02-26 21:35 | Emergency (ER) | payer OTHER ==
[2018-02-26] MEDS ORDERED: TYLENOL ONE (22:05)
[2018-02-26] MEDS ORDERED: TYLENOL PO ONE (22:07)
[2018-02-27] MEDS ORDERED: TORADOL IM ONE (02:53)
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
[2018-02-27 07:34] VITALS: BP 150/90
== END 2018-02-27 04:00 | disposition home or self-care (01) ==
LOC: ED 21:35
DX: S39.012A Strain of muscle, fascia and tendon of lower back, initial encounter (principal); I10 Essential (primary) hypertension; F17.200 Nicotine dependence, unspecified, uncomplicated; Z79.899 Other long term (current) drug therapy; Z79.82 Long term (current) use of aspirin; V49.19XA Passenger injured in collision with other motor vehicles in nontraffic accident, initial encounter; Y93.89 Activity, other specified; Y99.8 Other external cause status; Y92.488 Other paved roadways as the place of occurrence of the external cause
CPT/HCPCS: 72100; 96372; 99283; J1885